=== PATIENT | male | born 1990 | race Two or more races ===

== ENCOUNTER 2018-06-20 20:43 | Emergency (ER) | payer SELFPAY ==
[2018-06-20 20:46] VITALS: TEMP 97.9
--- NOTE | 2018-06-20 21:50 | ED PDOC ---
HPI: Psych/Substance Abuse Time Seen by Provider: 06/20/18 21:21 Chief Complaint (Nursing): Alcohol Ingestion History Per: Patient History/Exam Limitations: no limitations Onset/Duration Of Symptoms: Mins Current Symptoms Are (Timing): Still Present Modifying Factor(s): Alcohol Additional Complaint(s): 27 y/o male brought in by [employer] for evaluation of alcohol intoxication. 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 Last tetanus is unknown. PMD: None Provided Past Medical History Reviewed: Historical Data, Nursing Documentation, Vital Signs Vital Signs: Last Vital Signs Temp 97.9 F 06/20/18 20:43 Pulse 101 H 06/20/18 20:43 Resp 16 06/20/18 20:43 BP 133/77 06/20/18 20:43 Pulse Ox 96 06/20/18 20:43 - Medical History PMH: No Chronic Diseases - Surgical History Surgical History: No Surg Hx - Family History Family History: States: Unknown Family Hx - Allergies Allergies/Adverse Reactions: Allergies Allergy/AdvReac Type Severity Reaction Status Date / Time No Known Allergies Allergy Verified 06/20/18 20:43 Review of Systems ROS Statement: Except As Marked, All Systems Reviewed And Found Negative Musculoskeletal: Positive for: Hand Pain (laceration to left thumb) Psych: Positive for: Other (EtOH intoxication) Physical Exam - Reviewed Nursing Documentation Reviewed: Yes Vital Signs Reviewed: Yes - Physical Exam Appears: Positive for: Non-toxic, No Acute Distress Head Exam: Positive for: ATRAUMATIC Skin: Positive for: Normal Color, Warm Eye Exam: Positive for: Normal appearance Neck: Positive for: Normal Cardiovascular/Chest: Negative for: Bradycardia, Tachycardia Respiratory: Negative for: Accessory Muscle Use, Respiratory Distress Extremity: Positive for: Normal ROM, Other (1 cm laceration to the distal aspect of the left thmb. No active bleeding. Very superficial. ) Neurologic/Psych: Negative for: Motor/Sensory Deficits - ECG O2 Sat by Pulse Oximetry: 96 (RA) Pulse Ox Interpretation: Normal Medical Decision Making Medical Decision Making: Time: 2144 Plan: -- Tetanus Vaccination 0.5 ml IJ Pt ambulated into ER with steady gait. Wound irrigated, antibiotics ointment and dressing applied. Scribe Attestation: Documented by Evelia aLzar, acting as a scribe for Denise Lou PA-C. Provider Scribe Attestation: All medical record entries made by the Scribe were at my direction and personally dictated by me. I have reviewed the chart and agree that the record accurately reflects my personal performance of the history, physical exam, medical decision making, and the department course for this patient. I have also personally directed, reviewed, and agree with the discharge instructions and disposition. Disposition - Clinical Impression Clinical Impression: Alcohol abuse, Finger laceration, Tetanus toxoid vaccination administered at current visit - Patient ED Disposition Is Patient to be Admitted: No Counseled Patient/Family Regarding: Diagnosis, Need For Followup - Disposition Referrals: [facility] [Outside] Disposition: Routine/Home Disposition Time: 23:38 Condition: GOOD Instructions: Skin Abrasions Forms: [facility] (Burkinan) Print Language: [place] [employer] [place]
[2018-06-20] MEDS ORDERED: Tdap Vaccine 0.5 ml Vial (10-64 yrs) IM ONE (22:40)
[2018-06-20] MEDS: Tdap Vaccine 0.5 ml Vial (10-64 yrs) IM ONE (23:55)
[2018-06-21 00:02] VITALS: BP 130/70; PULSE 70; RESP 18; O2SAT 99
== END 2018-06-21 00:02 | disposition home or self-care (01) ==
LOC: H.ER 20:43
DX: F10.129 Alcohol abuse with intoxication, unspecified (principal); S61.012A Laceration without foreign body of left thumb without damage to nail, initial encounter; W25.XXXA Contact with sharp glass, initial encounter; Y92.89 Other specified places as the place of occurrence of the external cause